=== PATIENT | female | born 1955 | race Two or more races ===

== ENCOUNTER 2016-09-23 10:58 | Day surgery (SDC) | payer OTHER ==
[~2016-09-23 10:58] MED LIST: CEFAZOLIN SODIUM 2 GRAM PREMIX 100 ML IV ONE; IV START KIT ONE; LACTATED RINGERS 1,000 ML ONE
[2016-09-23] MEDS ORDERED: CEFAZOLIN SODIUM 2 GRAM PREMIX 100 ML IV PRN (11:14)
[2016-09-23] MEDS ORDERED: GENTAMICIN SULFATE 320 MG in SODIUM CHLORIDE 0.9% 100 ML IV PRN (11:30)
[2016-09-23] MEDS ORDERED: METRONIDAZOLE 20 APPLIC/70 G TUBE ONE (13:44)
[2016-09-23] MEDS ORDERED: BUPIVACAINE 0.5% (PRES FREE) 30 ML VIAL ONE (13:44)
[2016-09-23] MEDS ORDERED: SODIUM CHLORIDE 0.9% 50 ML ONE (13:44)
[2016-09-23] MEDS ORDERED: ESTROGENS,CONJUGATED CREAM 30 G/TUBE VG ONE (13:44)
[2016-09-23] MEDS ORDERED: LIDOCAINE 0.5%/EPI 1:200,000 (MULTIDOSE) 50 ML VIAL ONE (13:44)
[2016-09-23] MEDS ORDERED: OPIUM/BELLADONNA ALKALOIDS 1 EACH SUP PR ONE (14:07)
[2016-09-23] MEDS ORDERED: NEOMY SULF/POLYMYXIN B SULFATE 1 ML AMP IR ONE (14:08)
[2016-09-23] MEDS ORDERED: BUPIVACAINE 0.75% SPINAL AMPUL 2 ML ONE (14:18)
[2016-09-23] MEDS ORDERED: SPINAL PROCEDURAL TRAY 1 EACH ONE (14:18)
[2016-09-23] MEDS ORDERED: FENTANYL 100 MCG/2 ML VIAL ONE (14:20)
[2016-09-23] MEDS ORDERED: MIDAZOLAM HCL 1 MG/ML 2ML VIAL ONE (14:20)
[2016-09-23] MEDS ORDERED: EPHEDRINE SULFATE 50 MG/ML 1ML VIAL ONE (14:52)
[2016-09-23] MEDS ORDERED: PROPOFOL 40 ML IV ONE (14:58)
[2016-09-23] MEDS ORDERED: DEXAMETHASONE SOD PHOS 4 MG/1 ML VIAL ONE (14:58)
[2016-09-23] MEDS ORDERED: METOCLOPRAMIDE HCL 5 MG/ML 2ML VIAL ONE (14:58)
[2016-09-23] MEDS ORDERED: LIDOCAINE 2% (MULTI DOSE) 10 ML VIAL ONE (14:58)
[2016-09-23] MEDS ORDERED: PROMETHAZINE HCL 25 MG/ML VIAL IM PRN (15:00)
[2016-09-23] MEDS ORDERED: LACTATED RINGERS 1,000 ML IV SCH (15:00)
[2016-09-23] MEDS ORDERED: FENTANYL 100 MCG/2 ML VIAL IV PRN (15:00)
[2016-09-23] MEDS ORDERED: NALOXONE HCL 0.4 MG/ML VIAL IV PRN (15:00)
[2016-09-23] MEDS ORDERED: ONDANSETRON 4 MG/2ML 2 ML VIAL IV PRN ×2 (15:00→16:07)
[2016-09-23] MEDS ORDERED: ATROPINE SULFATE 0.4 MG/1 ML VIAL IV PRN (15:00)
[2016-09-23] MEDS ORDERED: HYDROMORPHONE HCL 1 MG/ML SYRINGE IV PRN (15:00)
[2016-09-23] MEDS ORDERED: HYDROCODONE/ACETAMINOPHEN 5/325MG TABLET PO PRN (16:07)
[2016-09-23] MEDS ORDERED: MORPHINE SULFATE 2 MG/ML SYRINGE IV PRN (16:07)
[2016-09-23] MEDS ORDERED: HYDROCODONE/ACETAMINOPHEN 5/325MG TABLET ONE (17:58)
--- NOTE | 2016-09-23 19:59 | OP ---
Chloe CESAR [id number] DATE OF OPERATION: September 23, 2016 SURGEON: Dalton Ruby M.D. SHADE MATCHER: Lucina Nascimento ANESTHESIA: Spinal. PREOPERATIVE DIAGNOSES: 1. Cystocele grade 2 with dysfunctional voiding. 2. 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 3. Secondary detrusor overactivity with urge incontinence symptoms. POSTOPERATIVE DIAGNOSES: 1. Cystocele grade 2 with dysfunctional voiding. 2. 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 3. Secondary detrusor overactivity with urge incontinence symptoms. PROCEDURE: 1. CYSTOSCOPY. 2. TROCAR SUPRAPUBIC CYSTOSTOMY TUBE PLACEMENT WITH DRAINAGE. 3. ANTERIOR MESH CYSTOCELE REPAIR. 4. SUBURETHRAL SLING. SPECIMENS: None. INDICATIONS: A 61-year-old woman with a greater than five year history of increasing urge symptoms causing frequency and nocturia and culminating in mixed incontinence. Urodynamic studies confirmed a grade 2 cystocele with dysfunctional voiding and borderline elevation of the voiding pressure. Urethra hypermobility is present with mild intrinsic sphincter deficiency causing stress incontinence. She also had secondary detrusor overactivity responsible for her urge symptoms and occasional urge incontinence. She has elected surgical intervention. FINDINGS: The bladder base was displaced into a grade 2 cystocele. Relative telescoping and kinking toward the bladder neck. Urethra hypermobility present. Squamous metaplasia of the trigone noted. Ureteral orifices normally disposed. At the end of the case no surgical material was intruding on the bladder or urethra aside from the suprapubic tube and both ureters were patent. PROCEDURE: The patient was identified and brought to the operating room where spinal anesthetic was applied and she was placed in the dorsal lithotomy position. The lower abdomen, genitalia, and vagina were prepped and draped sterilely. A site was marked 2 cm above the pubic brim in the midline and at the level of the clitoris in the groin folds. These were treated with 0.5% Marcaine and the suprapubic site opened with a stab incision. Cystoscopy was then performed using water as an irrigant and a 17 Thai scope. Findings are reported above. We used the scope to overdistend the bladder as we placed the patient in Trendelenburg position and then passed a Bard 12 Thai trocar suprapubic tube system into the high anterior wall of the bladder under direct vision during expiratory phase. The trocar and stylet were removed and the balloon was inflated and seated against the wall. It was allowed to drain throughout the case and ultimately secured at the level of the skin with #2-0 nylon. Cystoscope was withdrawn and replaced with a Fonseca catheter to gravity drainage. A posterior weighted speculum was inserted followed by a [place] retractor for labial retraction. The level of the bladder neck was identified, and then we inject 1% lidocaine behind the level of the bladder neck in the midline and continued hydrodissection laterally and posteriorly with injectable saline. An inverted C incision was made proximal to the bladder neck and the vaginal flap elevated back to the cervix, and out to the pelvic sidewalls on both sides. We perforated the pelvic floor and swept tissue off the sacrospinous ligament on each side. Next, on the high anterior wall of the vagina encroaching on the cervix, we preplaced a #2-0 Vicryl suture in the midline. We then selected an Uphold Lite graft and used a Capio device to place the posterior limbs around the sacrospinous ligament on each side. The posterior midline of the graft was secured to the pre-placed #2-0 Vicryl suture. The graft was pulled back into position, and the plastic sleeves on the graft were removed. The anterior lip of the graft which was now in good position, was secured with #2-0 Vicryl in the midline. We irrigated with genitourinary irrigant containing some Betadine paint, and the closed the vaginal wall with a running #2-0 Vicryl suture. After packing the posterior vagina with some gauze, we turned our attention suburethrally. We injected 1% lidocaine with epinephrine in the midline and then laterally with injectable saline. We opened a transverse incision suburethrally and created a bed for the sling to lie in and dissected tunnels out to the pubis on each side. The previously anesthetized groin sites were open with stab incisions and halo type carriers were used to draw a polypropylene mesh graft from the vaginal aspect out to the groin folds on each side. The graft was situated suburethrally using a 20 Thai sound as a spacer. We irrigated with genitourinary irrigant containing some Betadine paint and closed the vaginal wound with a running #2-0 Vicryl suture. All retractors were removed as well as the Fonseca catheter and cystoscopy was repeated. The bladder base was now in much better position, and there was coaptation noted along the urethra. A floppy tip wire was used into each ureteral orifice demonstrated patency on both sides. Suprapubic tube remained in good position. We removed the cystoscope and placed some estrogen cream on the suture lines followed by vaginal packing with Flagyl gel. The groin wounds were closed with Dermabond underneath Benzoin and SteriStrips. Suprapubic tube was secured and left to gravity drainage. A Heaven-Pad was applied. Estimated blood loss around 150 mL. Sponge and needle counts were correct. No early complications. She was taken in stable condition to the post anesthesia room. cc: Dalton Ruby M.D. Hermila Holly M.D.
== END 2016-09-23 19:14 | disposition home or self-care (01) ==
LOC: SDC 10:58
PROVIDERS: ATTEND Urology
PROC: 0JUC0JZ Supplement of Pelvic Region Subcutaneous Tissue and Fascia with Synthetic Substitute, Open Approach (ICD-10-PCS; principal; 2016-09-23)
PROC: 0TSD0ZZ Reposition Urethra, Open Approach (ICD-10-PCS; 2016-09-23)
DX: N81.10 Cystocele, unspecified (principal); N36.41 Hypermobility of urethra; N39.46 Mixed incontinence; R35.0 Frequency of micturition; R35.1 Nocturia; K21.9 Gastro-esophageal reflux disease without esophagitis; I10 Essential (primary) hypertension; Z87.440 Personal history of urinary (tract) infections; Z79.899 Other long term (current) drug therapy
CPT/HCPCS: 57240; 57267; 57288; 51102; J3010; J1580; J1100; A9270 ×4; J2765; J2250; J7120; J7050; J2001; J0690